=== PATIENT | male | born 1990 | race Caucasian/White ===

== ENCOUNTER 2016-10-30 15:10 | Inpatient (IN) | payer OTHER ==
[~2016-10-30] VITALS: Ht 180.3 cm; Wt 99.8 kg
--- NOTE | ~2016-10-30 | EKG ---
[place], [place] ELECTROCARDIOGRAM REPORT NAME: MELISSA HERNANDEZ UNIT #: [id number] ROOM: [id number] DOCTOR: ANIKA ADEN MD BIRTHDATE: [birth year] DOS: 10/30/2016 TIME: 1721 hours. FINDINGS: 1. Normal sinus rhythm at rate 77 with normal axis. 2. Early repolarization changes. 3. Normal electrocardiogram. ANIKA ADEN MD CM:EKGRPT:ELECTROCARDIOGRAM REPORT [phone] ANIKA ADEN MD
[2016-10-30 15:18] VITALS: BP 134/78
[2016-10-30 15:36] LABS: BILIRUBIN NEGATIVE (NEGATIVE); BLOOD NEGATIVE (NEGATIVE); CLARITY CLEAR (CLEAR); COLOR YELLOW (YELLOW); GLUCOSE NEGATIVE (NEGATIVE); KETONE NEGATIVE (NEGATIVE); LEUKO ESTERASE NEGATIVE (NEGATIVE); NITRITE NEGATIVE (NEGATIVE); PROTEIN NEGATIVE (NEGATIVE); SPECIFIC GRAVITY <= 1.005 (1.005-1.030); UROBILINOGEN 0.2 E.U./dl (0.2-1.0)
[2016-10-30 15:44] LABS: URINE AMPHETAMINES < 1000 (1000ng/ml); URINE BARBITURATES < 200 (200ng/ml); URINE COCAINE > 300 (300ng/ml)
[2016-10-30 15:46] LABS: BASO % 0.3 % (0.0-1.0); EOS # 0.1 10*3/uL (0.0-0.4); EOS % 1.7 % (1.0-4.0); HEMOGLOBIN 14.5 g/dl (14.0-18.0); LYMPH # 2.6 10*3/uL (1.3-4.4); LYMPH % 33.2 % (27.0-41.0); MEAN CELL VOLUME 89.7 fl (80.0-94.0); MEAN CORPUSCULAR HGB CONC 34.5 g/dl (33.0-37.0); MEAN PLATELET VOLUME 9.8 fl (9.6-12.3); MONO # 0.5 10*3/uL (0.1-1.0); MONO % 6.6 % (3.0-9.0); NEUT # 4.6 10*3/uL (2.3-7.9); NEUT % 57.9 % (47.0-73.0); PLATELET COUNT AUTOMATED 217 10*3/uL (130-400); RED BLOOD COUNT 4.68 10*6/uL (4.50-5.90); RED CELL DISTRI WIDTH 12.5 % (0-14.5); WHITE BLOOD COUNT 7.9 10*3/uL (4.8-10.8)
[2016-10-30 15:52] LABS: URINE REFLEX COMMENT NO (NO); WBC 0-2 wbc/hpf (0-5)
[2016-10-30 16:00] LABS: ALBUMIN 3.7 gm/dl (3.1-4.5); ALKALINE PHOSPHATASE 87 U/L (45-117); BILIRUBIN, TOTAL 0.3 mg/dl (0.2-1.0); BUN 13 mg/dl (7-24); CARBON DIOXIDE 28 mmol/L (21-32); CHLORIDE 101 mmol/L (98-107); EST GLOM FILT AFRICAN AMERICAN > 60 ml/min; GLUCOSE 73 mg/dL (65-99); POTASSIUM 4.1 mmol/L (3.5-5.1); SGOT/AST 71 IU/L (3-35); SGPT/ALT 166 U/L (12-78); SODIUM 138 mmol/L (136-145); TOTAL PROTEIN 8.1 gm/dL (6.4-8.2)
[2016-10-30 17:09] VITALS: BP 125/59
[2016-10-30 17:33] LABS: INTERNATIONAL NORM RATIO 0.9 (2.0-3.5)
[2016-10-30 20:00] VITALS: BP 134/65
[2016-10-31 00:45] VITALS: BP 121/70
[2016-10-31 04:00] VITALS: BP 130/68
[2016-10-31 08:00] VITALS: BP 155/68
[2016-10-31 12:00] VITALS: BP 132/90
[2016-10-31 16:00] VITALS: BP 144/64
[2016-10-31 20:00] VITALS: BP 126/69
[2016-11-01] VITALS: BP 118/64
[2016-11-01 08:00] VITALS: BP 122/66
[2016-11-01 12:00] VITALS: BP 146/76
[2016-11-01 16:14] VITALS: BP 134/872
[2016-11-01 20:00] VITALS: BP 127/64
[2016-11-02] VITALS: BP 124/74
[2016-11-02 08:00] VITALS: BP 116/56
[2016-11-02] MEDS ORDERED: ZOFRAN 4 MG ED2 TAB PO (10:00)
[2016-11-02] MEDS ORDERED: ATARAX,VISTARIL50 MG PO (10:00)
[2016-11-02] MEDS ORDERED: ROPINIROLE HYD0.5 MG PO (10:00)
[2016-11-02 12:00] VITALS: BP 120/66
== END 2016-11-02 15:32 | disposition home or self-care (01) | DRG 897 ==
LOC: ED 15:10 → EDHOLD 16:17 → 5E 16:17
PROVIDERS: Internal Medicine; Physician Assistant
DX: F19.939 Other psychoactive substance use, unspecified with withdrawal, unspecified (principal); F14.10 Cocaine abuse, uncomplicated; R00.1 Bradycardia, unspecified; F12.10 Cannabis abuse, uncomplicated; F17.200 Nicotine dependence, unspecified, uncomplicated; E66.09 Other obesity due to excess calories; Z71.6 Tobacco abuse counseling; Z68.30 Body mass index [BMI] 30.0-30.9, adult